=== PATIENT | male | born 1940 | race Caucasian/White ===

== ENCOUNTER → 2022-05-29 11:52 | Outpatient (CLI) | payer MEDICARE, OTHER, SELFPAY ==
[2022-05-29 13:24] LABS: COVID19 -Nasal RAPID Negative (Negative)
== END ==
PROVIDERS: PCP Family Medicine; Visit Provider Surgery
DX: Z01.812 Encounter for preprocedural laboratory examination (principal); Z20.822 Contact with and (suspected) exposure to COVID-19
CPT/HCPCS: 87635; C9803

== ENCOUNTER 2022-05-30 09:30 | Day surgery (SDC) | payer MEDICARE, OTHER, SELFPAY ==
--- NOTE | 2022-05-30 | PATH_ITS ---
[facility] Accession Number: [id number] No. of containers..01 Tissue . 01 Material submitted: . gastrointestinal site - GASTRIC BIOPSY . 01 Diagnosis: Stomach, Biopsy: Antral mucosa with mild chronic gastritis. Negative for Helicobacter by immunohistochemistry. Negative for intestinal metaplasia. Negative for dysplasia and malignancy. MRV 06/04/2022 1240 Local . 01 Electronically signed: . Ne Potter MD, Pathologist NPI- [id number] . 01 Gross description: . GASTRIC BIOPSY: Received in formalin are 2 fragment(s) of snow, soft tissue measuring 0.3 x 0.2 x 0.1 cm to 0.2 x 0.1 x 0.1 cm submitted entirely in 1 cassette(s) /CPE 05/31/2022 0617 Local . 01 Microscopic: . An immunohistochemical stain was performed to evaluate for Helicobacter organisms and is negative. The control stain showed appropriate reactivity. . * This test was developed and its performance characteristics determined by [facility]. It has not been cleared or approved by the U.[place]. Food and Drug Administration. The FDA has determined that such clearance or approval is not necessary. This test is used for clinical purposes. It should not be regarded as investigational or for research. . 01 Pathologist provided ICD-10: R10.13 . 01 CPT . 038073, [id number] Specimen Comment: A courtesy copy of this report has been sent to [facility] Pathology Performed at: 01 [facility] [address] [place] [address], [place], [place] [id number] MD Adrian Kerr MD Phone: [phone]
[2022-05-30] MEDS: LACTATED RINGERS 1,000 ML 84 ML IV (10:05)
[2022-05-30 10:06] VITALS: BP 146/89; PULSE 70; RESP 16; TEMP 36.1; O2SAT 97; BMI 27.8
--- NOTE | 2022-05-30 10:16 | PM.PREOP ---
Pre-operative Note COVID-19 COVID-19 status: Negative Interval Note History & Physical reviewed/Exam performed by Physician: Yes Changes to H&P: No ASA Class (for procedural sedation): II
--- NOTE | 2022-05-30 10:17 | PM.OP.EGD ---
Operative Date/Time/Diagnoses Date of procedure: 05/30/22 Pre-op diagnosis: See indication and findings Procedure & Clinicians Study performed: EGD Indications: Abdominal pain intermittently responsive to proton pump inhibitors. Rule out neoplasia Surgeon: Yunior Khan Procedure Notes Procedure in detail: After informed consent was obtained the patient was placed in left lateral decubitus position. The video upper scope was placed into the oropharynx and with the patient's help swelled into the esophagus. The esophagus stomach and duodenum were carefully examined. On withdrawal retroflexed view the GE junction was performed. The scope was removed. The patient tolerated procedure well. Blood loss none Complications none Sedation mac Findings 1. Normal esophagus other than a wide open Schatzki's ring at the GE junction. 2. Small sliding hiatal hernia 3. Striped gastric erythema in the antrum biopsies taken to rule out Helicobacter 4. Normal duodenal bulb and sweep Will await biopsies on Helicobacter. Currently he is doing well. As long as he is doing well I would have him stay off omeprazole and monitor his symptoms. All
[2022-05-30 11:10] VITALS: BP 103/56; PULSE 72; RESP 14; TEMP 36.2; O2SAT 94
[2022-05-30 11:13] VITALS: BP 113/66; PULSE 67; RESP 17; O2SAT 95
[2022-05-30 11:19] VITALS: BP 116/75; PULSE 60; RESP 15; TEMP 36.2; O2SAT 95
[2022-05-30 11:38] VITALS: BP 142/87; PULSE 75; RESP 18; TEMP 36.9; O2SAT 97
== END 2022-05-30 11:45 | disposition home or self-care (01) ==
PROVIDERS: PCP Family Medicine; Referring Provider Internal Medicine Gastroenterology; Visit Provider Internal Medicine Gastroenterology
PROC: 0DJ08ZZ Inspection of Upper Intestinal Tract, Via Natural or Artificial Opening Endoscopic (ICD-10-PCS; CPT 43235; principal; 2022-05-30 10:30)
DX: K29.50 Unspecified chronic gastritis without bleeding (principal); K22.2 Esophageal obstruction; K44.9 Diaphragmatic hernia without obstruction or gangrene
CPT/HCPCS: 43239; J2704